=== PATIENT | female | born 1960 | race Caucasian/White ===

== ENCOUNTER 2020-05-26 14:25 | Emergency (ER) | payer OTHER, SELFPAY ==
[2020-05-26 14:41] VITALS: BP 133/89; PULSE 88; RESP 20; TEMP 36.3; O2SAT 98
--- NOTE | 2020-05-26 14:49 | ED.URI ---
HPI - URI/Sore Throat General Chief Complaint: Upper Respiratory Infection Stated Complaint: upper respiratory infection Time Seen by Provider: 05/26/20 14:35 Source: patient and RN notes reviewed Mode of arrival: ambulatory Limitations: no limitations History of Present Illness HPI Narrative: 60-year-old female who presents to [facility] with 3-day history of body aches, scratchy throat, and headache with no known fevers, chills or sweats. Patient states that she has son who tested positive on Wednesday and granddaughter started with fever yesterday. Patient denies any shortness of breath, no cough or acute dyspnea. Patient states that she has had no nausea or vomiting or any diarrhea episodes. She states that she has been from her son at their home. MD elicited complaint: sore throat (scratchy throat, headache, and body aches) Onset (ago): day(s) (3) Consistency: constant Severity: moderate Pain scale (0-10): 4 Related Data Home Medications Medication Instructions Recorded Confirmed efinaconazole [Jublia] TOPICAL 05/26/20 hydrochlorothiazide 05/26/20 montelukast mg 05/26/20 Allergies Allergy/AdvReac Type Severity Reaction Status Date / Time codeine Allergy Unknown Hives / Verified 07/08/18 10:28 Red Face levofloxacin Allergy Unknown Hives / Verified 07/08/18 10:28 Red Face Review of Systems Review of Systems: Narrative: CONSTITUTIONAL: Denies fever, chills, or sweats. EYES: Denies visual changes, redness, or discharge. ENT: Denies rhinorrhea, congestion, Positive for scratchy throat, no otalgia. CARDIOVASCULAR: Denies chest pain, palpitations, or edema. RESPIRATORY: Denies cough or dyspnea. GASTROINTESTINAL: Denies abdominal pain, nausea, vomiting, or diarrhea. GENITOURINARY: Denies dysuria or hematuria. SKIN: Denies rash or itching. MUSCULOSKELETAL: Denies back pain, joint pain, positive body aches NEUROLOGIC: Positive headache,no numbness, or weakness. PSYCHIATRIC: Denies anxiety or depression. All systems reviewed & are unremarkable except as noted in HPI and below PMFSH Past Medical History Medical History (Updated 05/27/20 @ 00:00 by Reji Lee) Hypertension Hypothyroidism Seasonal allergies Strep pharyngitis Surgical History Surgical History (Updated 05/26/20 @ 15:19 by Renetta Martinez NP) H/O adenoidectomy as child History of appendectomy History of tonsillectomy as child and repeated in 2019 S/P complete hysterectomy cancer Family History Family History (Updated 05/26/20 @ 19:15 by Renetta Martinez NP) Other No significant family history Social History Social History (Updated 05/26/20 @ 18:15 by Renetta Martinez NP) Living arrangements: with family Gender identity (if verbalized by the patient): Female Comments At time of signature, agree with nursing past medical, surgical, social and family history. There is no relevant family history pertinent to the presenting complaint Exam Narrative: Exam Narrative: GENERAL: Well-appearing, well-nourished, and in no acute distress. HEAD: Normocephalic, atraumatic. EYES: PERRLA and EOMI. ENT: Nares clear, no rhinorrhea or epistaxis. Mucous membranes moist.TM's normal with dull light reflex, throat light red with no exudates or lesions, no tonsil enlargement. NECK: Supple.no lymphadenopathy CHEST: Clear to auscultation. No respiratory distress.SAO2 98% on room air HEART: Regular rate and rhythm. No murmur heard. Normal peripheral pulses. ABDOMEN: Soft, nontender, nondistended, normal active bowel sounds. EXTREMITIES: Normal range of motion. No edema.Moves all extremities on own power without difficulty has generalized body aches SKIN: Warm, dry, no rash. NEURO: No focal deficits. Alert and oriented x3. Course Vital Signs Vital signs: Vital Signs Temperature 36.3 C L 05/26/20 14:41 Pulse Rate 88 05/26/20 14:41 Respiratory Rate 20 05/26/20 14:41 Blood Pressure 133/89 05/26/20 14:41
[2020-05-27 19:06] LABS: SARS-CoV-2 RNA PCR Negative
== END 2020-05-26 15:23 | disposition home or self-care (01) ==
PROVIDERS: Emergency Provider Registered Nurse; PCP Internal Medicine
DX: J06.9 Acute upper respiratory infection, unspecified (principal); I10 Essential (primary) hypertension; E03.9 Hypothyroidism, unspecified
CPT/HCPCS: 87426; 99213; C9803; G0463; U0003